=== PATIENT | female | born 1990 | race American Indian/Alaskan Native ===

== ENCOUNTER 2018-09-19 06:10 | Inpatient (IN) | payer MEDICAID ==
[2018-09-19 07:12] VITALS: BMI 33.0
[2018-09-19] MEDS ORDERED: Lactated Ringer's 1,000 ML IV ONE (07:20)
[2018-09-19] MEDS ORDERED: Penicillin G 5 Million Unit Vial IVPB ONE (07:20)
[2018-09-19] MEDS ORDERED: Lactated Ringer's 1,000 ML IV SCH (07:30)
[2018-09-19 08:01] LABS: BASO % 0.4 % (0.0-2.0); EOS # 0.1 K/uL (0.0-0.7); EOS % 0.4 % (0.0-4.0); HEMOGLOBIN 10.9 g/dL (11.0-16.0); LYMPH # 2.4 K/uL (1.0-4.3); LYMPH % 18.3 % (20.0-40.0); MEAN CELL VOLUME 80.4 fL (81.0-99.0); MEAN CORPUSCULAR HEMOGLOBIN 26.3 pg (27.0-31.0); MEAN CORPUSCULAR HGB CONC 32.8 g/dL (33.0-37.0); MEAN PLATELET VOLUME 9.4 fL (7.2-11.7); MONO # 0.9 K/uL (0.0-0.8); MONO % 6.7 % (0.0-10.0); NEUT # 9.6 K/uL (1.8-7.0); NEUT % 74.2 % (50.0-75.0); RBC 4.15 Mil/uL (3.80-5.20)
--- NOTE | 2018-09-19 08:13 | OBADHP ---
Datetime: 09/19/2018 06:52 Admit Comment, IP Provider: 27 yo female with an IUP at 38 weeks and presented with c/o of contractions since 3 AM without LOF, VS. Admits to Vaginal spotting. PMHx and PSHx Negative NKDA Meds PNV Social Hx Denies x 3 A/P Term Active labor Hx of fast labors GBS Negative, per patient Requesting an Epidural NST Reactive Will admit for anticipated Vaginal deliveryg Pelvic Type - PN: Adequate Extremities - PN: Normal Abdomen - PN: Normal Back - PN: Normal Breast - PN: Not Done Lungs - PN: Normal Heart - PN: Normal Thyroid - PN: Normal Neurologic - PN: Normal HEENT - PN: Normal General - PN: Normal Presentation-Admit: Vertex FHR - Baseline A Provider: 150 Membranes, Provider: Intact Contraction Comments Provider: 2 Gestation - Est Wks by US: 38.0 IP Hx Assessment: Partial PNC records available Vital Signs Provider: Reviewed; Within Normal Limits IP Chief Complaint: Uterine contractions; Maternal discomfort NICHD Variability Prov Fetus A: Moderate 6-25bpm NICHD Accel Fetus A IP Provider: 10X10 NICHD Decel Fetus A IP Provider: None Dilatation, Provider: 4 Effacement, Provider: 80 Station, Provider: -3 Genitourinary Exam: Normal DTRs - PN: Normal EGA AdmitDate IP: 38.0 IP Adm Impression: Term, intrauterine ; Active labor; Intact Membranes IP Admit Plan: Admit to unit; Initiate labor protocol
[2018-09-19] MEDS ORDERED: Bupivacaine HCl/FentaNYL Cit 0 ML EPI ONE (08:23)
[2018-09-19] MEDS ORDERED: Oxytocin 30 UNIT 30 UNITS/500 ML BAG IV ONE (09:17)
[2018-09-19] MEDS ORDERED: Oxytocin 30 UNIT 30 UNITS/500 ML BAG IV SCH (09:30)
[2018-09-19] MEDS ORDERED: Bupivacaine HCl/FentaNYL Cit 100 ML EPI ONE (13:04)
--- NOTE | 2018-09-19 13:39 | OBPN ---
Datetime: 09/19/2018 13:30 IP Progress Impression: Normal progression of labor IP Procedures: Sterile Vag Exam IP Progress Plan: Continue present management; Anticipate Vaginal Delivery Contraction Comments Provider: 1-2 FHR - Baseline A Provider: 150 Gestation - Est Wks by US: 38.0 IP Progress Note Comment: Patient with c/o rectal pressure Cervical exam as above. pitocin at 12 MUnits Assessment: 27 y.o. P2, 38 weeks, near end of Stage 1 of labor. CAtegory 1 tracng. Clinically stab le. Plan: 1) Epidural top-off 2) Anticipate vaginal delivery Vital Signs Provider: Reviewed; Within Normal Limits FHR Category Provider Fetus A: Category I NICHD Variability Prov Fetus A: Moderate 6-25bpm Dilatation, Provider: 9 Effacement, Provider: 100 Station, Provider: -2 NICHD Decel Fetus A IP Provider: Early Datetime: 09/19/2018 06:52 Membranes, Provider: Intact Presentation-Admit: Vertex NICHD Accel Fetus A IP Provider: 10X10
[2018-09-19] MEDS ORDERED: Benzocaine/Menthol 20%-0.5% Topical Spray (60 ml) TOP PRN (14:22)
[2018-09-19] MEDS ORDERED: Oxycodone/Acetaminophen 5/325 mg Tab PO PRN (14:22)
--- NOTE | 2018-09-19 14:35 | OBDS ---
DELIVERY PERSONNEL Delivery Doctor: Nika Rodriguez MD Ball Thread Machine Tender: Jose G Acevedo RN Anesthesiologist: arlene MATERNAL INFORMATION Delivery Anesthesia: Epidural Medications in Delivery: pitocin 20 Estimated Blood Loss (ml): 300 Placenta Cultured: Yes Maternal Complications: None Provider Comments: Vaginal delivery of live female over intact perineum, MUSA position, tight nuchal cord x 1, doubly clamped and cut on perineum. handed to snapper on in attendance. Spontaneous delivery of placenta - grossly intact, 3 vessel cord Uterine exploration performed; uterus cleared of clots; contracted and firm. Inspection of of cervix, vagina and perineum - no lacerations Infant and mother bonding; both in stable condition EBL 300 mL Weight 5lb 12oz 's 6/9 LABOR SUMMARY EDC: 10/03/2018 00:00 No. Babies in Womb: 1 Attempted: No Labor Anesthesia: Epidural LABOR INFORMATION Onset of Labor: 09/19/2018 10:37 Complete Dilatation: 09/19/2018 13:30 Oxytocin: Augmentation Group B Beta Strep: Negative Steroids Given: None Reason Steroids Not Administered: Not Applicable MEMBRANES Membranes Rupture Method: Spontaneous Rupture of Membranes: 09/19/2018 11:39 Length of Rupture (hrs): 2.45 Amniotic Fluid Color: Clear Amniotic Fluid Amount: Small Amniotic Fluid Odor: Normal STAGES OF LABOR Stage 1 hrs: 2 Stage 1 min: 53 Stage 2 hrs: 0 Stage 2 min: 36 Stage 3 hrs: 0 Stage 3 min: 7 Total Time in Labor hrs: 3 Total Time in Labor min: 36 BABY A INFORMATION Delivery Date/Time: 09/19/2018 14:06 Method of Delivery: Vaginal Born in Route : No SHOULDER DYSTOCIA BABY A Infant Delivery Date/Time: 09/19/2018 14:06 PRESENTATION/POSITION BABY A Vertex Position: Right Occipital Anterior PLACENTA INFORMATION BABY A Placenta Delivery Time : 09/19/2018 14:13 Placenta Method of Delivery: Spontaneous SCORES BABY A Heart Rate 1 min: >100 bpm Resp Effort 1 min: Slow, Irregular Reflex Irritability 1 min: Grimace Muscle Tone 1 min: Some Flexion of Extremities Color 1 min: Body [place], Extremities Blue Resuscitation Effort 1 min: Tactile Stimulation; Oxygen SCORE 1 MIN: 6 Heart Rate 5 min: >100 bpm Resp Effort 5 min: Good Cry Reflex Irritability 5 min: Cough or Sneeze or Pulls Away Muscle Tone 5 min: Active Motion Color 5 min: Body [place], Extremities Blue SCORE 5 MIN: 9 INFANT INFORMATION BABY A Gestational Age at Delivery: 38.0 Gestational Status: Term Outcome : Liveborn Condition : Stable Sex: Female IDENTIFICATION/MEDS BABY A ID Band Number: [id number] Sensor Number: [id number] CORD INFORMATION BABY A Nuchal Cord : Around Neck x1, Tight ASSESSMENT BABY A Complications: None Physical Findings at Delivery: Within Normal Limits Respirations: Grunting; Intercostal Retractions Building Inspector/ALS Called : No Care By: dr patiño Transferred To: [facility]
[2018-09-20 08:49] LABS: BASO # 0.1 K/uL (0.0-0.2); BASO % 0.4 % (0.0-2.0); EOS # 0.1 K/uL (0.0-0.7); EOS % 0.5 % (0.0-4.0); HEMOGLOBIN 10.3 g/dL (11.0-16.0); LYMPH # 2.5 K/uL (1.0-4.3); LYMPH % 15.7 % (20.0-40.0); MEAN CELL VOLUME 81.2 fL (81.0-99.0); MEAN CORPUSCULAR HEMOGLOBIN 26.8 pg (27.0-31.0); MEAN CORPUSCULAR HGB CONC 32.9 g/dL (33.0-37.0); MEAN PLATELET VOLUME 9.4 fL (7.2-11.7); MONO # 0.7 K/uL (0.0-0.8); MONO % 4.6 % (0.0-10.0); NEUT # 12.5 K/uL (1.8-7.0); NEUT % 78.8 % (50.0-75.0); RBC 3.86 Mil/uL (3.80-5.20); RED CELL DISTRIBUTION WIDTH 14.1 % (11.5-14.5); WHITE BLOOD COUNT 15.9 K/uL (4.8-10.8)
[2018-09-20] MEDS: Multiple Vitamins Tab PO SCH (10:05)
--- NOTE | 2018-09-21 07:06 | OBPPN ---
Datetime: 09/20/2018 07:00 PP Pain Prov: Within normal limits PP Nausea Prov: Denies PP Flatus Prov: No PP BM Prov: No PP Breasts Prov: Not Done PP Heart Prov: Normal PP Lungs Prov: Normal PP Abdomen/Uterus Prov: Normal PP Lochia Prov: Normal PP Vulva/Perineum Prov: Normal PP CVA Tenderness Prov: Normal PP Extremities Prov: Normal PP C/S Incision Prov: Not Applicable PP Progress Prov: Abnormal PP Comments Phys Exam Prov: Abdomen: Non-tender, non-distended. Uterine fundus is firm, 1 finger luz maria adth below umbilicus. PP Impression Prov: Normal progression PP Plan Prov: Continue present management PP Progress Note Prov: 27 year old female PPD#1 status post SNVD complicated by tight nuchal cord, which was clamped and cut at the perineum. Patient reports 4/10 pain, improved with percocet. Admits to adali woodard, using 2 pads yesterday and one overnight. She has been walking the hallways. She is tolerating her diet. Denies BM, denies flatus. Denies fever, chills, nausea, vomiting, chest pain, shortness of breath, swelling and LE pain. She is pumping her breast milk, as baby is in [facility] observation. A_P: 27 year old female PPD#1 status post SNVD. -H/H 10.3/33.4 from 10.9/33.4, stable -Continue pain management, Ibuprofen 600mg Q6H PRN, Percocet 5/325mg Q4H PRN -Encourage breast pumping and baby on breast when cleared by pediatrics -Encourage adequate hydration -Continue ambulation -Continue Colace 100mg BID for constipation -Continue regular diet Case discussed with attending physician, Dr. Headley. Demi Yang, PGY-1 IP PP Procedures: None
--- NOTE | 2018-09-21 08:33 | OBPPN ---
Datetime: 09/21/2018 08:27 PP Pain Prov: Within normal limits PP Nausea Prov: Denies PP Breasts Prov: Normal PP Abdomen/Uterus Prov: Normal PP Lochia Prov: Normal PP Comments Phys Exam Prov: Abdomen: soft, non-tender fundus firm at level of umbilicus PP Impression Prov: Normal progression PP Plan Prov: Discharge PP Progress Note Prov: 27yo s/p NSD PPD#2 Pt doing well- VSS normal lochia noted Colace PRN constipation return to clinic in 6 weeks for follow up visit DC home today IP PP Procedures: None
--- NOTE | 2018-09-21 08:44 | OBDCSUM ---
Datetime: 09/21/2018 08:39 Discharged to, Provider: Home Follow up at, Provider: clinic Disch Instr Activity: Normal activity Disch Instr Diet: Regular Discharge Instructions, Provider: Routine instructions given Discharge Diagnosis, Provider: Term Delivered Discharge Time: 09/21/2018 08:40 Follow up in weeks, Provider: 6 weeks Disch Referrals: None Contraception discussed, Prov: No Disch Activity Restrictions: No lifting; No sexual activity; Nothing in vagina - [employer], tampon s, douche Discharge Comment, Provider: S/p NSD at 38+ weeks. Uncomplicated delivery and course. Pt to follow up for post visit in 6 weeks.
[2018-09-21] MEDS: Multiple Vitamins Tab PO SCH (09:25)
[2018-09-21 09:31] VITALS: BP 111/73; PULSE 85; RESP 18; TEMP 97.6; O2SAT 100
[2018-09-21] MEDS ORDERED: Influenza Vaccine 60 MCG/0.5 ML SYR (3 yr & up) IM ONE (09:44)
[2018-09-21] MEDS ORDERED: Prenatal Multivit/Folic Acid/Iron Tab PO SCH (10:00)
== END 2018-09-21 16:25 | disposition home or self-care (01) | DRG 373 ==
LOC: C.EROB 06:10 → C.4D 06:40 → C.4M 17:15
PROVIDERS: ADMIT Obstetrics & Gynecology; ATTEND Obstetrics & Gynecology
PROC: 10E0XZZ Delivery of Products of Conception, External Approach (ICD-10-PCS; principal; 2018-09-19)
DX: O69.1XX0 Labor and delivery complicated by cord around neck, with compression, not applicable or unspecified (principal); Z3A.38 38 weeks gestation of pregnancy; K59.00 Constipation, unspecified; Z37.0 Single live birth